=== PATIENT | female | born 1955 | race Caucasian/White ===

== ENCOUNTER → 2017-08-03 | Outpatient (CLI) | payer OTHER ==
--- NOTE | 2017-08-03 12:49 | MM ---
Reason for exam: screening (asymptomatic). Last mammogram was performed 1 year and 10 months ago. History: Patient is postmenopausal. Family history of breast cancer in mother at age 86 and breast cancer in maternal grandmother at age 70. Benign cyst aspiration of the left breast. Physical Findings: A clinical breast exam by your physician is recommended on an annual basis and results should be correlated with mammographic findings. MG Screening Mammo w CAD Bilateral CC and MLO view(s) were taken. Prior study comparison: September 20, 2015, bilateral MG screening mammo w CAD. March 17, 2014, bilateral MG screening mammo w CAD. The breast tissue is heterogeneously dense. This may lower the sensitivity of mammography. Finding: There are typically benign round calcifications in the right breast. There is no discrete abnormality. ASSESSMENT: Benign, BI-RAD 2 RECOMMENDATION: Routine screening mammogram of both breasts in 1 year.
== END | disposition home or self-care (01) ==
LOC: RADMAMWWP 08:36
PROVIDERS: ATTEND Family Medicine
DX: Z12.31 Encounter for screening mammogram for malignant neoplasm of breast (principal)

== ENCOUNTER → 2018-04-08 | Outpatient (CLI) | payer OTHER ==
--- NOTE | 2018-04-08 22:56 | US ---
EXAMINATION TYPE: US thyroid st tissue head/neck DATE OF EXAM: 04/08/2018 COMPARISON: NONE CLINICAL HISTORY: 63-year-old female R59.0 supraclavicular lymphadenopathy. Intermittent right lower neck area of swelling x 1 year TECHNIQUE: Multiple sonographic images of the right supraclavicular region. Images of the contralater al side were obtained for comparison purposes. FINDINGS: Hand Paster notes: Right neck area of concern: appears wnl Left neck for comparison: appears wnl No solid or cystic mass or suspicious lymphadenopathy is identified within the superficial tissues of the bilateral supraclavicular regions. IMPRESSION: No discrete sonographic abnormality identified in either supraclavicular region. The area can be reim aged if there is recurrence of a palpable finding or swelling.
== END | disposition home or self-care (01) ==
LOC: RADUSWWP 16:18
PROVIDERS: ATTEND Family Medicine
DX: R59.0 Localized enlarged lymph nodes (principal)
CPT/HCPCS: 76536

== ENCOUNTER → 2018-08-17 | Outpatient (CLI) | payer OTHER ==
--- NOTE | 2018-08-17 11:54 | MM ---
Reason for exam: screening (asymptomatic). Last mammogram was performed 1 year ago. History: Patient is postmenopausal. Family history of breast cancer in mother at age 86 and breast cancer in maternal grandmother at age 70. Benign cyst aspiration of the left breast. Physical Findings: A clinical breast exam by your physician is recommended on an annual basis and results should be correlated with mammographic findings. MG 3D Screening Mammo W/Cad Bilateral CC and MLO view(s) were taken. Prior study comparison: August 03, 2017, bilateral MG screening mammo w CAD. September 20, 2015, bilateral MG screening mammo w CAD. The breast tissue is heterogeneously dense. This may lower the sensitivity of mammography. There are benign appearing round vascular calcifications bilaterally. There is no discrete abnormality. ASSESSMENT: Benign, BI-RAD 2 RECOMMENDATION: Routine screening mammogram of both breasts in 1 year.
== END ==
LOC: RADMAMWWP 08:10
PROVIDERS: ATTEND Family Medicine
DX: Z12.31 Encounter for screening mammogram for malignant neoplasm of breast (principal)
CPT/HCPCS: 77063; 77067

== ENCOUNTER → 2019-09-01 | Outpatient (CLI) | payer BC ==
--- NOTE | 2019-09-05 09:41 | MM ---
Reason for exam: screening (asymptomatic). Last mammogram was performed 1 year ago. History: Patient is postmenopausal. Family history of breast cancer in mother at age 86 and breast cancer in maternal grandmother at age 70. Benign cyst aspiration of the left breast. Took hormonal contraceptives for 5 years. Physical Findings: A clinical breast exam by your physician is recommended on an annual basis and results should be correlated with mammographic findings. MG 3D Screening Mammo W/Cad Bilateral CC and MLO view(s) were taken. Prior study comparison: August 17, 2018, bilateral MG 3d screening mammo w/cad. August 03, 2017, bilateral MG screening mammo w CAD. The breast tissue is heterogeneously dense. This may lower the sensitivity of mammography. Stable benign calcifications. There is no discrete abnormality. No significant changes when compared with prior studies. ASSESSMENT: Benign, BI-RAD 2 RECOMMENDATION: Routine screening mammogram of both breasts in 1 year.
== END | disposition home or self-care (01) ==
LOC: RADMAMWWP 08:37
PROVIDERS: ATTEND Family Medicine
DX: Z12.31 Encounter for screening mammogram for malignant neoplasm of breast (principal)
CPT/HCPCS: 77063; 77067

== ENCOUNTER → 2020-09-12 | Outpatient (CLI) | payer MEDICARE, BC ==
--- NOTE | 2020-09-14 08:55 | MM ---
Reason for exam: screening (asymptomatic). Last mammogram was performed 1 year ago. History: Patient is postmenopausal. Family history of breast cancer in mother at age 86 and breast cancer in maternal grandmother at age 70. Benign cyst aspiration of the left breast. Took hormonal contraceptives for 5 years. Physical Findings: A clinical breast exam by your physician is recommended on an annual basis and results should be correlated with mammographic findings. MG 3D Screening Mammo W/Cad Bilateral CC and MLO view(s) were taken. Prior study comparison: September 01, 2019, bilateral MG 3d screening mammo w/cad. August 17, 2018, bilateral MG 3d screening mammo w/cad. The breast tissue is heterogeneously dense. This may lower the sensitivity of mammography. There are benign appearing round calcifications bilaterally. There is no discrete abnormality. ASSESSMENT: Benign, BI-RAD 2 RECOMMENDATION: Routine screening mammogram of both breasts in 1 year.
== END | disposition home or self-care (01) ==
LOC: RADMAMWWP 07:54
PROVIDERS: ATTEND Internal Medicine
DX: Z12.31 Encounter for screening mammogram for malignant neoplasm of breast (principal)
CPT/HCPCS: 77063; 77067

== ENCOUNTER → 2021-08-13 | Outpatient (CLI) | payer BC, MEDICARE | END | disposition home or self-care (01) | LOC: LABPAT 14:27 | PROVIDERS: ATTEND Orthopaedic Surgery | DX: Z01.812 Encounter for preprocedural laboratory examination (principal); M17.11 Unilateral primary osteoarthritis, right knee; Z22.322 Carrier or suspected carrier of Methicillin resistant Staphylococcus aureus | CPT/HCPCS: 87070 ==

== ENCOUNTER 2021-09-17 11:12 | Day surgery (SDC) | payer BC, MEDICARE ==
[2021-09-12 17:22] VITALS: BMI 26.6
--- NOTE | 2021-09-16 10:03 | HP ---
HISTORY AND PHYSICAL CHIEF COMPLAINT: Right knee pain. HISTORY OF PRESENT ILLNESS: The patient is a 66-year-old female who presents with progressive right knee pain for the past several years. She notes significant pain with weightbearing activities and at night. She notes diffuse pain along with swelling and stiffness. Intermittently she has giving way. She has had previous injections in addition to taking medications, without much relief. PAST MEDICAL HISTORY: Significant for depression, hypertension and arthritis. PAST SURGICAL HISTORY: Significant for left knee arthroscopy and gallbladder removal. FAMILY HISTORY: Significant for heart disease and cancer. SOCIAL HISTORY: Significant for social alcohol use. REVIEW OF SYSTEMS: Sixteen-point review of systems otherwise reviewed and is noncontributory. CURRENT MEDICATIONS: Aspirin, Paxil, ibuprofen, atenolol, lisinopril, loratadine. ALLERGIES: SHE DENIES DRUG ALLERGIES. PHYSICAL EXAMINATION: On examination, the patient is approximately 5 feet 4 inches, 155 pounds of mesomorphic habitus. HEENT exam is nonfocal. Neck is supple. She has painless passive motion of the right hip. Straight-leg raise is negative. Active motion of the right knee: Minus 12 to 115 degrees of flexion. She has a moderate effusion. She is tender about the medial joint line. Collaterals are stable, Mohit is negative, Paige's is equivocal. She has genu varum alignment. Her distal neurovascular exam appears intact in the right lower extremity. Weightbearing notch, lateral and Merchant views of the right knee obtained in the office show severe medial compartment narrowing with [id number] changes and subchondral sclerosis. IMPRESSION: Right knee severe medial compartment osteoarthrosis. RECOMMENDATIONS: I talked to the patient at length regarding her condition along with treatment options. At this point she remains quite symptomatic and limited secondary to pain related to her osteoarthrosis despite conservative measures. After thorough discussion, she opted to proceed with surgery. We will plan to proceed with right total knee arthroplasty. We will institute DVT prophylaxis postoperatively. MMODL / IJN: [id number] /
[~2021-09-17 11:12] MED LIST: ACETAMINOPHEN TAB 500 MG TAB PO PRN; MELOXICAM 7.5 MG TAB PO PRN; TRANEXAMIC ACID 1,000 MG in SODIUM CHLORIDE 0.9% 100 ML IVPB PRN
[2021-09-17] MEDS ORDERED: ONDANSETRON 4 MG/2 ML VIAL ONE (12:10)
[2021-09-17] MEDS ORDERED: LACTATED RINGERS 1,000 ML IV ONE ×2 (12:37→14:26)
[2021-09-17] MEDS ORDERED: DEXAMETHASONE SOD PHOSPHATE 4 MG/ML 1 ML VIAL IVP ONE (12:37)
[2021-09-17] MEDS ORDERED: fentaNYL (PF) 50 MCG/ML 5 ML AMP IVP ONE (12:45)
[2021-09-17] MEDS ORDERED: MIDAZOLAM 2 MG/2 ML VIAL IVP ONE (12:45)
[2021-09-17] MEDS ORDERED: .fentaNYL (PF) 50 MCG/ML 2 ML AMP ONE (13:16)
[2021-09-17] MEDS ORDERED: KETAMINE 10 MG/ML 20 ML VIAL ONE (13:16)
[2021-09-17] MEDS ORDERED: SODIUM CHLORIDE 0.9% (PF) 10 ML VIAL ONE (13:16)
[2021-09-17] MEDS ORDERED: PROPOFOL 10 MG/ML 20 ML VIAL IV ONE (13:16)
[2021-09-17] MEDS ORDERED: ROPIVACAINE 5 MG/ML 30 ML VIAL ONE (13:16)
[2021-09-17] MEDS ORDERED: MIDAZOLAM 2 MG/2 ML VIAL ONE (13:16)
[2021-09-17] MEDS ORDERED: TRANEXAMIC ACID 1,000 MG/10 ML VIAL ONE (13:16)
[2021-09-17] MEDS ORDERED: ePHEDrine 50 MG/ML 1 ML AMP ONE (13:16)
[2021-09-17] MEDS ORDERED: SODIUM CHLORIDE 0.9% 100 ML BAG ONE (13:16)
[2021-09-17] MEDS ORDERED: ceFAZolin 1,000 MG in SODIUM CHLORIDE 0.9% 1,000 ML IRRIGATION ONE (13:45)
--- NOTE | 2021-09-17 15:04 | P.ANPRN ---
Procedure Note - Anesthesia - Nerve Block Performed Right Adductor Canal Infusion Time Out Performed: Yes (1243) Date of Procedure: 09/17/21 Procedure Start Time: 12:45 Procedure Stop Time: 12:51 Location of Patient: PreOp Indication: Acute Post-Operative Pain, Requested by Surgeon Specifically requested for management of pain by DrJayme: Cedric Alexis Sedation Type: Sedate with meaningful contact maintained Preparation: Sterile Prep, Sterile Dressing Position: Supine Catheter Depth at Skin (cm): 7 Catheter: Indwelling Needle Gauge: 18 Ultrasound used to visualize needle placement: Yes Ultrasound used to observe medication spread: Yes Injectate: 0.5% Ropivacaine (see comment for volume) (15cc + 5cc nacl pf) Blood Aspirated: No Pain Paresthesia on Injection Noted: No Resistance on Injection: Normal Image Stored and Saved: Yes Events: Uneventful and Well Tolerated Right iPack Single Time Out Performed: Yes (124) Date of Procedure: 09/17/21 Procedure Start Time: 12:52 Procedure Stop Time: 12:56 Location of Patient: PreOp Indication: Acute Post-Operative Pain, Requested by Surgeon Specifically requested for management of pain by Dr.: Cedric Alexis Sedation Type: Sedate with meaningful contact maintained Preparation: Sterile Prep Position: Supine Catheter: None Needle Types: Pajunk Needle Gauge: 21 Ultrasound used to visualize needle placement: Yes Ultrasound used to observe medication spread: Yes Injectate: 0.5% Ropivacaine (see comment for volume) (15cc + 5cc nacl pf) Blood Aspirated: No Pain Paresthesia on Injection Noted: No Resistance on Injection: Normal Image Stored and Saved: Yes Events: Uneventful and Well Tolerated
[2021-09-17] MEDS ORDERED: HYDROcodone/APAP 5-325MG 1 EACH TAB PO PRN (15:19)
[2021-09-17] MEDS ORDERED: NALOXONE 0.4 MG/ML 1 ML VIAL IV PRN (15:19)
[2021-09-17] MEDS ORDERED: HYDROmorphone 0.5 MG/0.5 ML SYRINGE IVP PRN (15:19)
--- NOTE | 2021-09-17 15:29 | P.OP ---
Date of Procedure: 09/17/21 Preoperative Diagnosis: Right knee severe tricompartmental osteoarthrosis Postoperative Diagnosis: Same Procedure(s) Performed: Right total knee arthroplastyposterior stabilizedcemented Implants: Depuy Attune size 4 narrow cemented femoral component, size 3 cemented tibial component, 11 mm articular surface, 32 mm cemented patellar component. This is a posterior stabilized implant. Anesthesia: regional, spinal Surgeon: Cedric Alexis Typecasting Machine Operator #1: Armani Lyles Estimated Blood Loss (ml): 50 Pathology: other (Bone fragments) Condition: stable Disposition: PACU Indications for Procedure: The patient is a 60 [place] female presents with progressive right knee pain secondary to osteoarthrosis despite conservative measures. A discussion of the risks and benefits of operative intervention versus continued conservative sarah sures was made with patient. She opted to proceed with surgery. Operative risks to include infection, neurovascular injury, development of blood clots, possible component loosening/failure need for subsequent procedures was discussed. Informed consent was obtained. Operative Findings: As below Description of Procedure: The patient was brought to the operating room, and after induction of spinal anesthesia the right lower extremity was prepped and draped in a normal fashion. The tourniquet was inflated to 270 mm marker. A longitudinal incision extending 3 finger breaths above the superior pole of patella extending to the medial aspect the tibial tubercle was then made. The skin and subcutaneous tissues were divided sharply. Electrocautery was used for hemostasis. A medial parapatellar arthrotomy was performed. The medial soft tissues to include the superficial and deep portions of the medial collateral ligament were elevated subperiosteally. The patella was everted. A portion of the retropatellar fat pad was excised sharply. The anterior cruciate ligament was sacrificed. Blunt retractors were placed. A starting hole was made in the distal femur 1 cm anterior to the posterior cruciate ligament origin. An intramedullary femoral guide was then inserted planning on 5 valgus distal cut with 9 mm distal resection. The cutting block was pinned in place. The distal cut was then made. The posterior referencing sizing guide was utilized. I felt size 4 narrow was most appropriate. 3 of external rotation was built into the system and verified off the trans-epicondylar axis and the posterior condyles. The cutting block was pinned in place. The anterior, posterior, and chamfer cuts then made. Bone fragments were removed. The intercondylar guide was placed and the notch cut was made with a sagittal saw. The bone block was removed in one fragment. The trial component was then placed. There is good anterior to posterior and medial to lateral fit. The distal peg holes were drilled. The trial component was removed. Attention was then paid towards preparing the proximal femur. An extra medullary guide was utilized in line with the tibial shaft and second metatarsal distally. I planned on 2 mm resection from the medial compartment. The cutting block was pinned in place. The proximal tibial cut was then made. The bone was removed in one fragment. The remnants of the medial and lateral menisci were excised at the capsular junction with electrocautery. The tibia sized most appropriately at size 3. The trial femoral and tibial components were placed along with a 11 mm articular surface. I was able to obtain full flexion and extension with internal and external rotation. After several flexion and extension cycles, the tibial rotation was marked with electrocautery line with the medial one third of the tibial tubercle. Attention was then paid towards preparing the patella. A patella reamer was utilized taking stem to 14 mm of bone stock. A good flush cut was made. The patella sized most appropriately 32 mm. The peg holes were drilled. The trial components placed. I had good patellofemoral tracking with no hands technique. The trial components were then removed. The tibia was prepared in the appropriate rotation with appropriate drill and keel punch. The posterior osteophytes were removed with a curved osteotome. The flexion and extension gaps were checked and felt to be symmetric at 11 mm. A trial components were then removed. The bony surfaces were prepared with pulsatile lavage and dried. The tibial component was then cemented place was fully seated. Excess cement was removed. The femoral component cemented place and was fully seated. Excess cement was removed. The trial 11 mm articular surface was placed and the knee was put in full extension. The patella component was cemented place. After the cement had sufficiently hardened, the knee was again taken through a range of motion. Again I was able to obtain full flexion and extension with varus and valgus stress. The trial 11 mm articular surface was removed and the final one inserted. This was fully seated. Care was taken to avoid any soft tissue interposition. Pulsatile lavage was again utilized. The medial parapatellar arthrotomy was closed with #2 Ethibond suture. The tourniquet was deflated with approximately 60 minutes total tourniquet time. Final hemostasis was obtained with the cautery. There was minimal bleeding therefore a deep drain was not placed. The subcutaneous tissues were reapproximated with interrupted 2-0 Vicryl sutures. The skin was reapproximated with 3-0 subcuticular strata fix suture. Skin tape and adhesive was applied. A sterile dressing was applied. The patient was awoken from sedation and transferred to recovery room in good condition. Blood loss was estimated at 50 mL. No complications were incurred. Sponge and needle counts were correct at the end of the case. Armani CIFUENTES assisted during the major components of this case to include exposure, bone resection, implantation, and closure.
--- NOTE | 2021-09-17 15:56 | XR ---
EXAMINATION TYPE: XR knee limited RT DATE OF EXAM: 09/17/2021 CLINICAL HISTORY: Right knee pain and arthritis status post total knee replacement. TECHNIQUE: Portable AP and crosstable lateral views of the right knee are obtained immediately posto peratively. COMPARISON: Outside right knee x-ray August 08, 2021 FINDINGS: [place] osseous structures are demineralized. Metallic hardware from total right knee arthr oplasty is now seen and appears satisfactory in alignment and position. There is evidence of recent surgery with diffuse subcutaneous gas and soft tissue swelling noted. IMPRESSION: METALLIC HARDWARE FROM TOTAL RIGHT KNEE ARTHROPLASTY IS SATISFACTORY IN ALIGNMENT.
[2021-09-17] MEDS ORDERED: ROPIVACAINE 0.2%-NS ON-Q PUMP 1,090 MG, EMPTY PAIN BALL 1 EACH MISCELLANE PRN (16:24)
[2021-09-17] MEDS: HYDROcodone/APAP 7.5-325MG 1 EACH TAB PO PRN (17:04)
--- NOTE | 2021-09-17 17:56 | P.CONS ---
History of Present Illness - Reason for Consult Consult date: 09/17/21 hypertension Requesting physician: Cedric Alexis - Chief Complaint knee pain - History of Present Illness Patient is a 66-year-old female with hypertension, dyslipidemia, and osteoarthritis of her right total knee arthroplasty. Patient tolerated the procedure well without any immediate postoperative complications. Patient seen and examined at bedside. We'll controlled currently. Denies any postoperative, nausea, vomiting, lightheadedness, dizziness, chest pain, shortness of breath. Had been having osteoarthritis for quite some years and then increased her working and had worsening pain. Denies any recent cough, cold, fever, flu. Blood pressure is typically well controlled. Pertinent positives and negatives as discussed in HPI, a complete review of systems was performed and all other systems are negative. General: non toxic, no distress, appears at stated age Derm: warm, dry Head: atraumatic, normocephalic, symmetric Eyes: EOMI, no lid lag, anicteric sclera, pupils equal round reactive to light ENT: Nose and ears atraumatic, no thrush, no pharyngeal erythema Neck: No thyromegaly, no cervical lymphadenopathy, trachea midline, supple Mouth: no lip lesion, mucus membranes moist Cardiovascular: S1S2 reg, no murmur, positive posterior tibial pulse bilateral, no edema Lungs: Decreased bs bilateral, no ronchi, no rales, no wheeze, no accessory muscle use Abdominal: soft, nontender to palpation, no guarding, no appreciable organomega ly, normal bowel sounds Ext: no gross muscle atrophy, muscle strength equal bilateral upper extremi ties, no contractures, right knee with dressing in place and onQ ball Neuro: CN II-XI grossly intact, light touch intact all 4 extremities, finger to nose within normal limits, Psych: Alert, oriented, appropriate affect 66-year-old female status post right total knee arthroplasty Hypertension, controlled - lisinopril, atenolol/chlorthalidone - follow BP Hypokalemia -Recheck in a.m. Dyslipidemia - statin, lopid Thank you for allowing us to participate in the care of this pleasant patient. Do not hesitate to contact us with questions. Someone can be reached from the [facility] hospitalist group all hours of the day at [phone] or via [employer]. Past Medical History Past Medical History: Hyperlipidemia, Hypertension, Osteoarthritis (OA) History of Any Multi-Drug Resistant Organisms: None Reported Past Surgical History: Cholecystectomy, Orthopedic Surgery Additional Past Surgical History / Comment(s): left knee arthroscopy Past Anesthesia/Blood Transfusion Reactions: Previous Problems w/ Anesthesia, Postoperative Nausea & Vomiting (PONV) Additional Past Anesthesia/Blood Transfusion Reaction / Comm: had several teeth removed as a child in a hospital setting, had some kind of reaction to an esthesia-possibly a seizure?-took med. after for a period of time, never had any other problems-none as an adult Past Psychological History: Anxiety, Depression Smoking Status: Never smoker Past Alcohol Use History: Daily Additional Past Alcohol Use History / Comment(s): 1-2 glasses wine Past Drug Use History: None Reported - Past Family History Mother Family Medical History: Cancer Additional Family Medical History / Comment(s): breast Medications and Allergies Home Medications Medication Instructions Recorded Confirmed Type Acetaminophen [Tylenol Arthritis] 650 mg PO Q6H PRN 09/12/21 09/12/21 History Alendronate Sodium [Fosamax] 70 mg PO Q7D 09/12/21 09/12/21 History Atenolol/Chlorthalidone 1 each PO DAILY 09/12/21 09/12/21 History [Atenolol/Chlorthalidone 50-25] Atorvastatin [Lipitor] 40 mg PO DAILY 09/12/21 09/12/21 History Fenofibrate [Lofibra] 54 mg PO DAILY 09/12/21 09/12/21 History Ibuprofen [Motrin Ib] 200 mg PO Q6H PRN 09/12/21 09/12/21 History Lisinopril [Zestril] 10 mg PO DAILY 09/12/21 09/12/21 History Loratadine [Claritin] 10 mg PO DAILY 09/12/21 09/12/21 History Multivitamins, Thera [Multivitamin 1 tab PO DAILY 09/12/21 09/12/21 History (formulary)] PARoxetine [Paxil] 10 mg PO DAILY 09/12/21 09/12/21 History RX: Aspirin 81 mg PO DAILY 09/12/21 09/12/21 History RX: Vitamin E 400 unit PO DAILY 09/12/21 09/12/21 History Ubidecarenone [Co Q-10] 100 mg PO DAILY 09/12/21 09/12/21 History Allergies Allergy/AdvReac Type Severity Reaction Status Date / Time No Known Allergies Allergy Verified 09/17/21 11:51 Physical Exam Osteopathic Statement: *. No significant issues noted on an osteopathic struc tural exam other than those noted in the History and Physical/Consult. Vitals: Vital Signs Temp Pulse Pulse Resp BP BP Pulse Ox 09/17/21 16:30 67 16 148/67 97 09/17/21 16:15 68 16 132/73 96 09/17/21 16:00 63 18 130/61 100 09/17/21 15:45 63 18 120/60 100 09/17/21 15:30 68 18 111/60 100 09/17/21 15:22 97.8 F 70 18 109/58 97 09/17/21 13:00 64 16 141/70 98 09/17/21 12:00 97.9 F 72 16 140/67 98 Intake and Output 09/17/21 09/17/21 09/17/21 06:59 14:59 22:59 Intake Total 1451 400 Output Total 50 Balance 1401 400 Intake: IV 1451 400 Output: Estimated Blood Loss 50 Other: Weight 68.1 kg Results CBC & Chem 7: 09/17/21 12:28 Labs: Abnormal Lab Results - Last 24 Hours (Table) 09/17/21 Range/Units 12:28 Potassium 3.3 L (3.5-5.1) mmol/L
[2021-09-17] MEDS ORDERED: SENNOSIDES-DOCUSATE SODIUM 1 EACH TAB PO SCH (21:00)
[2021-09-18] MEDS: HYDROcodone/APAP 7.5-325MG 1 EACH TAB PO PRN ×2 (05:38→11:30)
[2021-09-18] MEDS ORDERED: ENOXAPARIN 30 MG/0.3 ML SYRINGE SQ SCH (06:00)
[2021-09-18 06:22] LABS: African American GFR (CKD) >90 (>60 ml/min/1.73 sqM); Anion Gap 7 mmol/L; Blood Urea Nitrogen 19 mg/dL (7-17); Calcium 9.7 mg/dL (8.4-10.2); Carbon Dioxide 29 mmol/L (22-30); Chloride 100 mmol/L (98-107); Glucose 117 mg/dL (74-99); Non-African American GFR(CKD) 88 (>60 ml/min/1.73 sqM); Potassium 3.7 mmol/L (3.5-5.1); Sodium 136 mmol/L (137-145)
--- NOTE | 2021-09-18 07:13 | P.PN ---
Progress Note - Text Progress Note Date: 09/18/21 (740) Anesthesiology Postop day 1 status post total knee arthroplasty with adductor canal catheter. Patient doing well. VAS 0 out of 10. Gross strength intact in lower extremity. Afebrile. Denies alterations in sensorium. Catheter site intact. Heart regular rate Lungs nonlabored Abdomen nondistended Assessment: Postop day 1 status post total knee arthroplasty with adductor canal catheter Plan: All questions answered. Maintain catheter 2 more days with patient removal at home. Instructions were given at discharge.
[2021-09-18] MEDS ORDERED: lisinopriL 10 MG TAB PO SCH (09:00)
[2021-09-18] MEDS ORDERED: ATORVASTATIN 40 MG TAB PO SCH (09:00)
[2021-09-18] MEDS ORDERED: PARoxetine 10 MG TAB PO SCH (09:00)
[2021-09-18] MEDS ORDERED: FENOFIBRATE 54 MG TAB PO SCH (09:00)
[2021-09-18] MEDS ORDERED: atenoloL 50 MG TAB PO SCH (09:00)
[2021-09-18] MEDS ORDERED: CHLORTHALIDONE 25 MG TAB PO SCH (09:00)
[2021-09-18] MEDS ORDERED: LORATADINE 10 MG TAB PO SCH (09:00)
[2021-09-18 09:44] LABS: Basophils # (A) 0.03 X 10*3/uL (0.00-0.10); Basophils % (A) 0.3 %; Eosinophils # (A) 0.01 X 10*3/uL (0.04-0.35); Eosinophils % (A) 0.1 %; HCT 37.5 % (37.2-46.3); HGB 12.3 g/dL (12.0-15.0); Lymphocytes % (A) 12.9 %; MCH 31.9 pg (27.0-32.0); MCHC 32.8 g/dL (32.0-37.0); MCV 97.4 fL (80.0-97.0); Mean Platelet Volume 10.3 fL (9.5-12.2); Monocytes # (A) 0.99 X 10*3/uL (0.20-1.00); Monocytes % (A) 9.8 %; Neutrophils # (A) 7.73 X 10*3/uL (1.80-7.70); Neutrophils % (A) 76.6 %; Platelet Count 326 X 10*3/uL (140-440); RBC 3.85 X 10*6/uL (4.10-5.20); RDW 12.5 % (11.5-14.5); WBC 10.09 X 10*3/uL (4.50-10.00)
--- NOTE | 2021-09-18 10:24 | P.DS ---
Providers Date of admission: 09/17/2021 Expected date of discharge: 09/18/21 Attending physician: Cedric Alexis Consults: 09/17/21 15:22 Consult Physician Routine Consulting Provider: Ivonne Grossman Consult Reason/Comments: Medical Management s/p RTKA Do you want consulting provider notified?: Yes Primary care physician: Arpan Hinson Hospital Course: Date of admission: 09/17/2021 Date of discharge: 09/18/2021 Admission diagnosis: Right knee osteoarthritis Discharge diagnosis: Same Attending physician: Dr. Alexis Surgical procedures: Right total knee arthroplasty Brief history: Patient is a 66-year-old female with a history of progressive primary right knee osteoarthritis. At this point patient has failed conservative treatment measures and has opted to proceed with a elective right total knee arthroplasty. Hospital course: Details of patient's surgery can be found in operative report. Patient tolerated the procedure well and was subsequently transported to orthopedic floor. Patient's orthopeidc and medical care was provided daily. Patient had daily laboratory tests performed for evaluation of overall blood counts. Patient had daily physical therapy to include strengthening range of motion as well as education with walker ambulation. Patient was treated with Lovenox for their postoperative DVT prophylaxis during their inpatient stay. Patient was noted to have a relatively uneventful postoperative course. Patient reported satisfactory pain control with oral pain medications by postoperative day 1. Patient showed satisfactory progress with physical therapy. Patient moved steadily through the program and had no difficulty meeting the goals by postoperative day 1. Given patient's otherwise satisfactory course and having met physical therapy goals, plan is to discharge patient home on postoperative day 1. Discharge condition/disposition: Patient will be discharged home in stable condition. Discharge medications: Instructions are given on resumption of patient's normal daily medications per primary care recommendation, in addition patient will be prescribed [place] 7.5 mg/325 mg; Colace; aspirin 81 mg twice a day 30 days patient has aspirin at home to take. Discharge instructions: 1. Wound care and infection precautions, keep incision dry and covered while showering, no lotions, creams, moisturizers. No soaking, tubs, pools, hottubs. Do not scrub over the incision. 2. Weight-bear as tolerated with walker / cane until follow-up. 3. Ice and elevate when necessary. Do not exceed 20 minutes per hour with ice pack. 4. Utilize compression sleeve until seen at first follow up appointment. 5. Visiting nursing care. 6. Home physical therapy including home CPM. 7. Pain meds and anticoagulants per prescription. 8. Pain medication has potential to cause constipation. Increase oral fluid and fiber intake. Contact primary care provider if you have not had a bowel movement within 48 hours after discharge 9. No anti-inflammatory medication until discussed at first post operative visit, this including Motrin, Aleve, Mobic, Diclofenac. 10. Follow up in office at 2 weeks postop with Oli Pratt PA-C / Armani Lyles PA-C 11. Follow up with your primary care doctor 7-10 days after discharge. 12. Contact [facility] with any questions, . Keep incision clean, dry, intact. While showering, cover incision with Saran wrap/plastic bag. Keep mesh tape on until follow-up appointment in 2 weeks. Medications: Lunenburg 7.5 mg/325 mg; Colace; aspirin 81 mg twice a day 30 days Assessment: Right knee osteoarthritis Procedures: Right total knee arthroplasty Patient Condition at Discharge: Good Plan - Discharge Summary Discharge Rx Participant: Yes New Discharge Prescriptions: New HYDROcodone/APAP 7.5-325MG [Lunenburg 7.5] 1 each PO Q6HR PRN #32 tab PRN Reason: Pain Docusate [Colace] 100 mg PO DAILY #30 capsule Continue Atorvastatin [Lipitor] 40 mg PO DAILY Atenolol/Chlorthalidone [Atenolol/Chlorthalidone 50-25] 1 each PO DAILY Alendronate Sodium [Fosamax] 70 mg PO Q7D Multivitamins, Thera [Multivitamin (formulary)] 1 tab PO DAILY Aspirin 81 mg PO DAILY PARoxetine [Paxil] 10 mg PO DAILY Loratadine [Claritin] 10 mg PO DAILY Fenofibrate [Lofibra] 54 mg PO DAILY Lisinopril [Zestril] 10 mg PO DAILY Vitamin E 400 unit PO DAILY Ubidecarenone [Co Q-10] 100 mg PO DAILY Acetaminophen [Tylenol Arthritis] 650 mg PO Q6H PRN PRN Reason: Pain No Action Ibuprofen [Motrin Ib] 200 mg PO Q6H PRN PRN Reason: Pain Discharge Medication List Acetaminophen [Tylenol Arthritis] 650 mg PO Q6H PRN 09/12/21 [History] Alendronate Sodium [Fosamax] 70 mg PO Q7D 09/12/21 [History] Aspirin 81 mg PO BID 09/12/21 [History] Atenolol/Chlorthalidone [Atenolol/Chlorthalidone 50-25] 1 each PO DAILY 09/12/21 [History] Atorvastatin [Lipitor] 40 mg PO DAILY 09/12/21 [History] Fenofibrate [Lofibra] 54 mg PO DAILY 09/12/21 [History] Ibuprofen [Motrin Ib] 200 mg PO Q6H PRN 09/12/21 [History] Lisinopril [Zestril] 10 mg PO DAILY 09/12/21 [History] Loratadine [Claritin] 10 mg PO DAILY 09/12/21 [History] Multivitamins, Thera [Multivitamin (formulary)] 1 tab PO DAILY 09/12/21 [History] PARoxetine [Paxil] 10 mg PO DAILY 09/12/21 [History] Ubidecarenone [Co Q-10] 100 mg PO DAILY 09/12/21 [History] Vitamin E 400 unit PO DAILY 09/12/21 [History] Docusate [Colace] 100 mg PO DAILY #30 capsule 09/18/21 [Rx] HYDROcodone/APAP 7.5-325MG [Lunenburg 7.5] 1 each PO Q6HR PRN #32 tab 09/18/21 [Rx] Follow up Appointment(s)/Referral(s): [facility],Equipment [NON-STAFF] - (*Please call [facility] once home to arrange delivery of Continuous Passive Motion (CPM) machine. ) Arpan Hinson MD [Primary Care Provider] - 1 Week [facility], [NON-STAFF] - ([facility] will call you once home to schedule your in home nursing and physical therapy visits. ) Armani Lyles PAC [PHYSICIAN TEA ROOM MANAGER] - 2 Weeks Patient Instructions/Handouts: Knee Replacement (GEN) Activity/Diet/Wound Care/Special Instructions: Discharge instructions: 1. Wound care and infection precautions, keep incision dry and covered while showering, no lotions, creams, moisturizers. No soaking, tubs, pools, hottubs. Do not scrub over the incision. 2. Weight-bear as tolerated with walker / cane until follow-up. 3. Ice and elevate when necessary. Do not exceed 20 minutes per hour with ice pack. 4. Utilize compression sleeve until seen at first follow up appointment. 5. Visiting nursing care. 6. Home physical therapy including home CPM. 7. Pain meds and anticoagulants per prescription. 8. Pain medication has potential to cause constipation. Increase oral fluid and fiber intake. Contact primary care provider if you have not had a bowel movement within 48 hours after discharge 9. No anti-inflammatory medication until discussed at first post operative visit, this including Motrin, Aleve, Mobic, Diclofenac. 10. Follow up in office at 2 weeks postop with Oli Pratt PA-C / Armani Lyles PA-C 11. Follow up with your primary care doctor 7-10 days after discharge. 12. Contact [facility] with any questions, . Keep incision clean, dry, intact. While showering, cover incision with Saran wrap/plastic bag. Keep mesh tape on until follow-up appointment in 2 weeks. Medications: Lunenburg 7.5 mg/325 mg; Colace; aspirin 81 mg twice a day 30 days Discharge Disposition: HOME WITH HOME HEALTH SERVICES
--- NOTE | 2021-09-18 10:29 | P.PN ---
Subjective Progress Note Date: 09/18/21 Principal diagnosis: Right knee osteoarthritis Patient was seen this morning at bedside wrist slightly sitting up in chair icing her knee. Patient says she did get up with physical therapy this morning and walk around remnant following up-and-down process. Patient says she does have walker at home. Patient says she is ready to home. Patient says she has had something to eat since surgery. She says she has been passing gas, however, she says she has not had bowel movement yet. Patient denies chest pain, fever, shortness of breath, nausea, vomiting, change in vision, loss of bladder control. Objective - Vital Signs Vital signs: Vital Signs Temp 98.0 F 09/18/21 07:26 Pulse 64 09/18/21 07:26 Resp 20 09/18/21 07:26 BP 154/70 09/18/21 07:26 Pulse Ox 96 09/18/21 07:26 Intake & Output 09/17/21 09/18/21 09/18/21 18:59 06:59 18:59 Intake Total 2811 Output Total 50 Balance 2761 Weight 68.1 kg Intake: IV 1851 Oral 960 Output: Estimated Blood Loss 50 Other: # Voids 0 4 - Exam Right knee: Incision is clean, dry, and intact. The mesh tape is in good condition. There is minimal soft tissue swelling and ecchymosis surrounding the medial and lateral aspects of the incision. Calf is soft, no tenderness with palpation. Plantar flexion, dorsiflexion, EHL, FHL are intact. Sensory exam to light touch throughout the extremity is intact, dorsal pedis pulses 2+. - Labs CBC & Chem 7: 09/18/21 05:39 09/18/21 05:39 Labs: Abnormal Lab Results - Last 24 Hours (Table) 09/17/21 09/18/21 09/18/21 Range/Units 12:28 05:39 05:39 WBC 10.09 H (4.50-10.00) X 10*3/uL RBC 3.85 L (4.10-5.20) X 10*6/uL MCV 97.4 H (80.0-97.0) fL Neutrophils # 7.73 H (1.80-7.70) X 10*3/uL Eosinophils # 0.01 L (0.04-0.35) X 10*3/uL Sodium 136 L (137-145) mmol/L Potassium 3.3 L (3.5-5.1) mmol/L BUN 19 H (7-17) mg/dL Glucose 117 H (74-99) mg/dL Assessment and Plan Assessment: Right knee osteoarthritis - Postop day #1 status post right total knee arthroplasty Plan: 1. Right knee osteoarthritis - right total knee arthroplasty performed yesterday, 09/17/2021. Patient stable to assessment. Plan discharge home today with health services. 2. Appreciate medical management 3. Pain management - [place] 4. DVT prophylaxis - Lovenox in hospital; aspirin 81 mg twice a day 30 days once at home 5. GI prophylaxis - Colace 6. Encourage incentive spirometer use 7. PT/OT - weightbearing as tolerated with walker 8. Discharge planning - plan discharge home today with health services. Time with Patient: Less than 30
--- NOTE | 2021-09-18 13:05 | P.PN ---
Subjective Progress Note Date: 09/18/21 Principal diagnosis: knee pain Patient is a 66-year-old female with hypertension, dyslipidemia, and osteoarthritis of her right total knee arthroplasty. Patient tolerated the procedure well without any immediate postoperative complications. Patient seen and examined at bedside. General: non toxic, no distress, appears at stated age Derm: warm, dry Head: atraumatic, normocephalic, symmetric Mouth: no lip lesion, mucus membranes moist Cardiovascular: S1S2 reg, no murmur, positive posterior tibial pulse bilateral, no edema Lungs: Decreased bs bilateral, no ronchi, no rales, no wheeze, no accessory muscle use Abdominal: soft, nontender to palpation, no guarding, no appreciable organomegaly, normal bowel sounds Ext: no gross muscle atrophy, no contractures, right knee with dressing in place and on Q ball Neuro: CN II-XI grossly intact, light touch intact all 4 extremities, finger to nose within normal limits, Psych: Alert, oriented, appropriate affect 66-year-old female status post right total knee arthroplasty Hypertension, controlled - lisinopril, atenolol/chlorthalidone - follow BP Hypokalemia, resolved Dyslipidemia - statin, lopid medically optimized for discharge, med rec addressed. Thank you for allowing us to participate in the care of this pleasant patient. Do not hesitate to contact us with questions. Someone can be reached from the [facility] hospitalist group all hours of the day at [phone] or via perfect serve. Objective - Vital Signs Vital signs: Vital Signs Temp 98.0 F 09/18/21 07:26 Pulse 64 09/18/21 07:26 Resp 20 09/18/21 08:54 BP 154/70 09/18/21 07:26 Pulse Ox 96 09/18/21 07:26 Intake & Output 09/17/21 09/18/21 09/18/21 18:59 06:59 18:59 Intake Total 2811 Output Total 50 Balance 2761 Weight 68.1 kg Intake: IV 1851 Oral 960 Output: Estimated Blood Loss 50 Other: # Voids 0 4 - Labs CBC & Chem 7: 09/18/21 05:39 09/18/21 05:39 Labs: Abnormal Lab Results - Last 24 Hours (Table) 09/18/21 09/18/21 Range/Units 05:39 05:39 WBC 10.09 H (4.50-10.00) X 10*3/uL RBC 3.85 L (4.10-5.20) X 10*6/uL MCV 97.4 H (80.0-97.0) fL Neutrophils # 7.73 H (1.80-7.70) X 10*3/uL Eosinophils # 0.01 L (0.04-0.35) X 10*3/uL Sodium 136 L (137-145) mmol/L BUN 19 H (7-17) mg/dL Glucose 117 H (74-99) mg/dL
[2021-09-18 14:45] VITALS: BP 143/75; PULSE 74; RESP 16; TEMP 98.6
== END 2021-09-18 15:53 | disposition home health service (06) ==
LOC: OR 11:12 → 4SSUR 15:15 → OR 09-18 15:53
PROVIDERS: ATTEND Orthopaedic Surgery
DX: M17.11 Unilateral primary osteoarthritis, right knee (principal); M25.761 Osteophyte, right knee; I10 Essential (primary) hypertension; F32.A Depression, unspecified; E78.5 Hyperlipidemia, unspecified; Z20.822 Contact with and (suspected) exposure to COVID-19; Z98.890 Other specified postprocedural states; F41.9 Anxiety disorder, unspecified; Z80.9 Family history of malignant neoplasm, unspecified; Z82.49 Family history of ischemic heart disease and other diseases of the circulatory system; Z79.1 Long term (current) use of non-steroidal anti-inflammatories (NSAID); Z79.82 Long term (current) use of aspirin; Z79.899 Other long term (current) drug therapy
CPT/HCPCS: 97161; 64999; 64448; 76942; 80048; 84132; 85025; 88300; 87635; 73560; 27447; C1713 ×2; C1776; J2250; J1100; J0690 ×3; J2405; J3010 ×2; J1650; J2795 ×2; J2704

== ENCOUNTER → 2021-12-24 | Outpatient (CLI) | payer BC, MEDICARE ==
--- NOTE | 2021-12-25 12:38 | MM ---
Reason for exam: screening (asymptomatic). Last mammogram was performed 1 year and 3 months ago. History: Patient is postmenopausal. Family history of breast cancer in mother at age 86 and breast cancer in maternal grandmother at age 70. Benign cyst aspiration of the left breast. Took hormonal contraceptives for 5 years. Physical Findings: A clinical breast exam by your physician is recommended on an annual basis and results should be correlated with mammographic findings. MG 3D Screening Mammo W/Cad Bilateral CC and MLO view(s) were taken. Prior study comparison: September 12, 2020, bilateral MG 3d screening mammo w/cad. September 01, 2019, bilateral MG 3d screening mammo w/cad. The breast tissue is heterogeneously dense. This may lower the sensitivity of mammography. No significant changes when compared with prior studies. ASSESSMENT: Benign, BI-RAD 2 RECOMMENDATION: Routine screening mammogram of both breasts in 1 year.
== END | disposition home or self-care (01) ==
LOC: RADMAMWWP 08:41
PROVIDERS: ATTEND Family Medicine
DX: Z12.31 Encounter for screening mammogram for malignant neoplasm of breast (principal); Z78.0 Asymptomatic menopausal state; Z80.3 Family history of malignant neoplasm of breast
CPT/HCPCS: 77063; 77067

== ENCOUNTER → 2024-05-10 | Outpatient (CLI) | payer MEDICARE, BC ==
--- NOTE | 2024-05-11 13:58 | MM ---
Reason for Exam: Screening (asymptomatic). Last screening mammogram was performed 12 month(s) ago. Patient History: Menarche at age 12. First Full-Term at age 28. Postmenopausal. Patient used Hormonal Contraceptives for 5 years. Benign Cyst Aspiration on the left side. Maternal grandmother had breast cancer, age 70. Mother had breast cancer, age 86. Risk Values: Lavonne 5 year model risk: 3.4%. NCI Lifetime model risk: 10.2%. Prior Study Comparison: 09/12/2020 Bilateral Screening Mammogram, [facility]. 12/24/2021 Bilateral Screening Mammogram, [facility]. 04/30/2023 Bilateral MG 3D screening mammo w/cad, [facility]. Tissue Density: The breasts are heterogeneously dense, which may obscure small masses. Findings: Analyzed By CAD. There is no suspicious group of microcalcifications or new suspicious mass in either breast. Overall Assessment: Negative, BI-RAD 1 Management: Screening Mammogram of both breasts in 1 year. . Patient should continue monthly self-breast exams. A clinical breast exam by your physician is recommended on an annual basis. This exam should not preclude additional follow-up of suspicious palpable abnormalities. Note on Lavonne scores and lifetime risk: 1. A Lavonne score greater than 3% is considered moderate risk. If this is the case, consider specialist referral to assess eligibility for a risk reducing agent. 2. If overall lifetime risk for the development of breast cancer is 20% or higher, the patient may qualify for future screening with alternating mammogram and breast MRI. Electronically signed and approved by: Alexis Paredes M.D. Radiologis
== END | disposition home or self-care (01) ==
LOC: RADMAMWWP 14:12
PROVIDERS: ATTEND Family Medicine
DX: Z12.31 Encounter for screening mammogram for malignant neoplasm of breast (principal); R92.333 Mammographic heterogeneous density, bilateral breasts; Z78.0 Asymptomatic menopausal state; Z80.3 Family history of malignant neoplasm of breast
CPT/HCPCS: 77063; 77067

== ENCOUNTER → 2024-06-21 | Outpatient (CLI) | payer MEDICARE, BC | END | disposition home or self-care (01) | LOC: LABPAT 10:23 | PROVIDERS: ATTEND Orthopaedic Surgery | DX: Z01.818 Encounter for other preprocedural examination (principal); M17.12 Unilateral primary osteoarthritis, left knee; Z22.322 Carrier or suspected carrier of Methicillin resistant Staphylococcus aureus | CPT/HCPCS: 87070 ==

== ENCOUNTER 2024-07-12 05:42 | Day surgery (SDC) | payer MEDICARE, BC ==
--- NOTE | 2024-07-11 08:32 | P.HPOR ---
History of Present Illness H&P Date: 07/11/24 Chief Complaint: Left knee pain The patient is a 69-year-old female who presents with progressive left knee pain for the past several years worsening over the past several months. She notes aching and soreness along with stiffness and giving way. She tried medications in addition to previous injections with only temporary partial relief. She notes daily pain that limits her normal function and activities. Review of Systems Per HPI Past Medical History Past Medical History: GERD/Reflux, Hyperlipidemia, Hypertension, Osteoarthritis (OA) Additional Past Medical History / Comment(s): hx. fatty liver disease History of Any Multi-Drug Resistant Organisms: None Reported Past Surgical History: Breast Surgery, Cholecystectomy, Joint Replacement, Orthopedic Surgery Additional Past Surgical History / Comment(s): left knee arthroscopy, right knee replaced 2020, cyst removed from breast, D & C Past Anesthesia/Blood Transfusion Reactions: Previous Problems w/ Anesthesia, Postoperative Nausea & Vomiting (PONV) Additional Past Anesthesia/Blood Transfusion Reaction / Comment(s): had several teeth removed as a child in a hospital setting, had some kind of reaction to anesthesia-possibly a seizure?-took med. after for a period of time, never had any other problems-none as an adult Smoking Status: Never smoker - Past Family History Mother Family Medical History: Cancer Additional Family Medical History / Comment(s): breast Medications and Allergies Home Medications Medication Instructions Recorded Confirmed Type Alendronate Sodium [Fosamax] 70 mg PO Q7D 09/12/21 07/05/24 History Atorvastatin [Lipitor] 40 mg PO DAILY 09/12/21 07/05/24 History Fenofibrate [Lofibra] 54 mg PO DAILY 09/12/21 07/05/24 History Ibuprofen [Motrin Ib] 200 mg PO Q6H PRN 09/12/21 07/05/24 History Loratadine [Claritin] 10 mg PO DAILY 09/12/21 07/05/24 History Multivitamins, Thera [Multivitamin 1 tab PO DAILY 09/12/21 07/05/24 History (formulary)] PARoxetine [Paxil] 20 mg PO DAILY 09/12/21 07/05/24 History Ubidecarenone [Co Q-10] 100 mg PO DAILY 09/12/21 07/05/24 History Vitamin E 400 unit PO DAILY 09/12/21 07/05/24 History Acetaminophen [Tylenol Extra 500 mg PO Q6H PRN 07/05/24 07/05/24 History Strength] Prebiotic 1 tab PO DAILY 07/05/24 07/05/24 History Vitamin D3/Vitamin K2 (Mk4) 1 each PO DAILY 07/05/24 07/05/24 History [Vitamin K2 Plus D3 Tablet] amLODIPine BESYLATE/BENAZEPRIL 1 each PO DAILY 07/05/24 07/05/24 History [amLODIPine BESYLATE/BENAZEPRIL 5-40 mg] hydroCHLOROthiazide [Hydrodiuril] 12.5 mg PO DAILY 07/05/24 07/05/24 History Allergies Allergy/AdvReac Type Severity Reaction Status Date / Time No Known Allergies Allergy Verified 07/05/24 15:59 Physical Examination - Knee left Appearance: effusion Effusion grade: grade 3 Varus alignment in stance: 5 degrees Tenderness with palpation: anterior, medial Pain: throughout ROM Gait: limping ROM: extension: -15 degrees ROM: flexion: 90 degrees Crepitus with motion: Yes Strength: extension: 5/5 Strength: flexion: 5/5 Meniscal tests: medial meniscal tests: positive, medial joint line pain: posi tive Results The patient is a well-developed well-nourished female approximately 5 foot 4, 162 pounds of mesomorphic habitus. HEENT exam is nonfocal, neck is supple. She has painless passive motion of her left hip. She is tender about the medial joint line of the left knee. Collaterals are stable, Mohit is negative, Paige's is equivocal. Her distal neurovascular exam appears intact to the left lower extremity. - Diagnostic results Knee x-ray: image reviewed (X-rays of the left knee obtaining the office show severe medial compartment osteoarthrosis with [id number] changes along with subchondral sclerosis. Genu varum alignment is noted.) Assessment and Plan Assessment: Left knee severe medial compartment osteoarthrosis Plan: I talked to the patient at length regarding her condition along with treatment options. At this point she is quite symptomatic having pain and mechanical symptoms related to her left knee osteoarthrosis despite conservative measures. After a thorough discussion she opts to proceed with surgery. We'll plan to proceed with left total knee arthroplasty. Risks and benefits were discussed at length in layman's terms. We will institute DVT prophylaxis postoperatively.
[~2024-07-12 05:42] MED LIST changes: -ACETAMINOPHEN TAB 500 MG TAB PO PRN; -MELOXICAM 7.5 MG TAB PO PRN; +TRANEXAMIC 1,000 MG/100ML-NACL 1,000 MG in SALINE 1 100ML.BAG IVPB PRN; -TRANEXAMIC ACID 1,000 MG in SODIUM CHLORIDE 0.9% 100 ML IVPB PRN
[2024-07-12] MEDS ORDERED: LIDOCAINE 1% (10MG/ML) FOR IV START INTRADERMA PRN (05:57)
[2024-07-12] MEDS: LACTATED RINGERS 1,000 ML IV SCH (06:32)
[2024-07-12] MEDS: ONDANSETRON 4 MG/2 ML VIAL IVP ONE (06:33)
[2024-07-12] MEDS: MELOXICAM 7.5 MG TAB PO PRN (06:33)
[2024-07-12] MEDS: DEXAMETHASONE SOD PHOSPHATE 4 MG/ML 1 ML VIAL IV ONE (06:33)
[2024-07-12] MEDS: ACETAMINOPHEN TAB 500 MG TAB PO PRN (06:33)
[2024-07-12] MEDS: MIDAZOLAM 2 MG/2 ML VIAL IV PRN (06:58)
[2024-07-12] MEDS ORDERED: fentaNYL (PF) 50 MCG/ML 2 ML AMP IVP PRN (07:00)
[2024-07-12] MEDS: IV FLUID CONTINUATION 1,000 ML IV ONE (07:15)
[2024-07-12] MEDS ORDERED: PROPOFOL 10 MG/ML 20 ML VIAL IV ONE (07:25)
[2024-07-12] MEDS ORDERED: MIDAZOLAM 2 MG/2 ML VIAL ONE (07:25)
[2024-07-12] MEDS ORDERED: KETAMINE HCL IN 0.9 % NACL 50 MG/5 ML SYRINGE ONE (07:25)
[2024-07-12] MEDS ORDERED: ROPIVACAINE 5 MG/ML 30 ML VIAL ONE (07:25)
[2024-07-12] MEDS ORDERED: fentaNYL (PF) 50 MCG/ML 2 ML AMP ONE (07:25)
[2024-07-12] MEDS ORDERED: PHENYLEPHRINE 10 MG/ML VIAL ONE (07:25)
[2024-07-12] MEDS ORDERED: TRANEXAMIC 1,000 MG/100ML-NACL PREMIX BAG ONE (07:25)
[2024-07-12] MEDS ORDERED: DEXAMETHASONE SOD PHOSPHATE 4 MG/ML 1 ML VIAL ONE (07:25)
[2024-07-12] MEDS: ceFAZolin 1,000 MG in SODIUM CHLORIDE 0.9% 1,000 ML IRRIGATION ONE (08:00)
[2024-07-12] MEDS: LACTATED RINGERS 1,000 ML IV ONE (08:44)
[2024-07-12] MEDS ORDERED: MAGNESIUM HYDROXIDE 2,400 MG/30 ML CUP PO PRN (09:06)
[2024-07-12] MEDS ORDERED: HYDROmorphone 0.5 MG/0.5 ML SYRINGE IVP PRN ×2 (09:06)
[2024-07-12] MEDS ORDERED: NALOXONE 0.4 MG/ML 1 ML VIAL IV PRN (09:06)
[2024-07-12] MEDS ORDERED: HYDROcodone/APAP 5-325MG 1 EACH TAB PO PRN (09:06)
--- NOTE | 2024-07-12 09:25 | P.OP ---
Date of Procedure: 07/12/24 Preoperative Diagnosis: Left knee severe tricompartmental osteoarthrosis Postoperative Diagnosis: Same Procedure(s) Performed: Left total knee arthroplastycementedposterior stabilized Implants: DePuy attune size 4 narrow cemented femoral component, size 3 cemented tibial component, 10 mm articular surface, 32 mm cemented patellar component. This is a posterior stabilized implant. Anesthesia: regional, spinal Surgeon: Cedric Alexis Audit Director #1: Armani Lyles Estimated Blood Loss (ml): 50 Pathology: none sent Condition: stable Disposition: PACU Indications for Procedure: The patient is a 69-year-old female who presents with progressive left knee pain secondary to osteoarthrosis despite conservative measures. A discussion of the risks and benefits of operative intervention versus continued conservative measures with the patient. She opted to proceed with surgery. Operative risks include infection, neurovascular injury, development of blood clots, fracture, possible component loosening/failure and possible need for subsequent procedures was discussed. Informed consent was obtained. Operative Findings: As below Description of Procedure: The patient was brought to the operating room, and after induction of spinal anesthesia the left lower extremity was prepped and draped in a normal fashion. The tourniquet was inflated to 270 mm marker. A longitudinal incision extending 3 finger breaths above the superior pole of patella extending to the medial aspect the tibial tubercle was then made. The skin and subcutaneous tissues were divided sharply. Electrocautery was used for hemostasis. A medial parapatellar arthrotomy was performed. The medial soft tissues to include the superficial and deep portions of the medial collateral ligament were elevated subperiosteally. The patella was everted. A portion of the retropatellar fat pad was excised sharply. The anterior cruciate ligament was sacrificed. Blunt retractors were placed. A starting hole was made in the distal femur 1 cm anterior to the posterior cruciate ligament origin. An intramedullary femoral guide was then inserted planning on 5 valgus distal cut with 9 mm distal resection. The cutting block was pinned in place. The distal cut was then made. The posterior referencing sizing guide was utilized. I felt size 4 narrow was most appropriate. 3 of external rotation was built into the system and verified off the trans-epicondylar axis and the posterior condyles. The cutting block was pinned in place. The anterior, posterior, and chamfer cuts then made. Bone fragments were removed. The intercondylar guide was placed and the notch cut was made with a sagittal saw. The bone block was removed in one fragment. The trial component was then placed. There is good anterior to posterior and medial to lateral fit. The distal peg holes were drilled. The trial component was removed. Attention was then paid towards preparing the proximal tibia. An extra medullary guide was utilized in line with the tibial shaft and second metatarsal distally. I planned on 2 mm resection from the medial compartment. The cutting block was pinned in place. The proximal tibial cut was then made. The bone was removed in one fragment. The remnants of the medial and lateral menisci were excised at the capsular junction with electrocautery. The tibia sized most appropriately at size 3. The trial femoral and tibial components were placed along with a 10 mm articular surface. I was able to obtain full flexion and extension with internal and external rotation. After several flexion and extension cycles, the tibial rotation was marked with electrocautery line with the medial one third of the tibial tubercle. Attention was then paid towards preparing the patella. A patella reamer was utilized taking stem to 14 mm of bone stock. A good flush cut was made. The patella sized most appropriately 32 mm. The peg holes were drilled. The trial components placed. I had good patellofemoral tracking with no hands technique. The trial components were then removed. The tibia was prepared in the appropriate rotation with appropriate drill and keel punch. The posterior osteophytes were removed with a curved osteotome. The flexion and extension gaps were checked and felt to be symmetric at 10 mm. A trial components were then removed. The bony surfaces were prepared with pulsatile lavage and dried. The tibial component was then cemented place was fully seated. Excess cement was removed. The femoral component cemented place and was fully seated. Excess cement was removed. The trial 10 mm articular surface was placed and the knee was put in full extension. The patella component was cemented place. After the cement had sufficiently hardened, the knee was again taken through a range of motion. Again I was able to obtain full flexion and extension with varus and valgus stress. The trial 10 mm articular surface was removed and the final one inserted. This was fully seated. Care was taken to avoid any soft tissue interposition. Pulsatile lavage was again utilized. The medial parapatellar arthrotomy was closed with #2 Ethibond suture. The tourniquet was deflated with approximately 60 minutes total tourniquet time. Final hemostasis was obtained with the cautery. There was minimal bleeding therefore a deep drain was not placed. The subcutaneous tissues were reapproximated with interrupted 2-0 Vicryl sutures. The skin was reapproximated with 3-0 subcuticular strata fix suture. Skin tape and adhesive was applied. A sterile dressing was applied. The patient was awoken from sedation and transferred to recovery room in good condition. Blood loss was estimated at 50 mL. No complications were incurred. Sponge and needle counts were correct at the end of the case. Armani CIFUENTES assisted during the major components of this case to include exposure, bone resection, implantation, and closure.
[2024-07-12] MEDS: ROPIVACAINE 1,100 MG, SODIUM CHLORIDE 0.9% 500 ML 330 ML, EMPTY PAIN BALL 1 EACH MISCELLANE PRN (09:38)
--- NOTE | 2024-07-12 09:52 | XR ---
EXAMINATION TYPE: XR knee limited LT DATE OF EXAM: 07/12/2024 CLINICAL HISTORY: Postoperative evaluation Two views of the left knee are submitted. Identified are changes of total knee arthroplasty with fem oral and tibial components appearing well seated. Postsurgical soft tissue changes are noted. Align ment is anatomic. [facility], , 07/12/2024 9:49 AM
[2024-07-12] MEDS: HYDROmorphone 1 MG/ML 1 ML SYRINGE IVP STA (10:43)
--- NOTE | 2024-07-12 12:10 | P.ANPRN ---
Procedure Note - Anesthesia - Nerve Block Performed Left Adductor Canal Infusion Time Out Performed: Yes Date of Procedure: 07/12/24 Procedure Start Time: 06:57 Procedure Stop Time: 07:04 Location of Patient: PreOp Indication: Acute Post-Operative Pain, Requested by Surgeon Sedation Type: Sedate with meaningful contact maintained Preparation: Sterile Prep, Sterile Dressing Position: Supine Catheter: Indwelling Needle Types: Pajunk Needle Gauge: 21 Ultrasound used to visualize needle placement: Yes Ultrasound used to observe medication spread: Yes Blood Aspirated: No Pain Paresthesia on Injection Noted: No Resistance on Injection: Normal Image Stored and Saved: Yes Events: Uneventful and Well Tolerated (Ropivacaine 0.5% 20 cc plus dexamethasone 4 mg)
--- NOTE | 2024-07-12 12:11 | P.ANPRN ---
Procedure Note - Anesthesia - Nerve Block Performed Left iPack Single Time Out Performed: Yes Date of Procedure: 07/12/24 Procedure Start Time: 07:05 Procedure Stop Time: 07:06 Location of Patient: PreOp Indication: Acute Post-Operative Pain, Requested by Surgeon Sedation Type: Sedate with meaningful contact maintained Preparation: Sterile Prep Position: Supine Needle Types: Pajunk Needle Gauge: 21 Ultrasound used to visualize needle placement: Yes Ultrasound used to observe medication spread: Yes Blood Aspirated: No Pain Paresthesia on Injection Noted: No Resistance on Injection: Normal Image Stored and Saved: Yes Events: Uneventful and Well Tolerated (Ropivacaine 0.5% 25 cc plus dexamethasone 4 mg)
[2024-07-12] MEDS: HYDROmorphone 0.5 MG/0.5 ML SYRINGE IVP PRN (13:40)
--- NOTE | 2024-07-12 15:03 | P.CONS ---
History of Present Illness - Reason for Consult Consult date: 07/12/24 Requesting physician: Cedric Alexis - Chief Complaint medical management - History of Present Illness Patient is a 69-year-old female with past medical history of hypertension, hyperlipidemia, anxiety and depression who is admitted to the orthopedic service after a left total knee arthroplasty. Medicine consulted for medical management. Patient denying any acute complaints. ROS: 10 ROS reviewed and are negative except as noted in HPI Physical exam General: [Alert and oriented, well nourished, no acute distress]. Eye: [PERRL, EOMI, normal conjunctiva]. HENT: [Normocephalic, clear tympanic membranes, normal hearing, moist oral mucosa, no scleral icterus, no sinus tenderness]. Neck: [Supple, non-tender, no carotid bruits, no JVD, no lymphadenopathy]. Lungs: [Clear to auscultation and percussion, non-labored respiration]. Heart: [Normal rate, regular rhythm, no murmur, gallop or edema]. Abdomen: [Soft, non-tender, non-distended, normal bowel sounds, no masses]. Musculoskeletal: [Bandage on left knee intact and dry, restricted range of motion of the left lower extremity]. Skin: [Skin is warm, dry and pink, no rashes or lesions]. Neurologic: [Awake, alert, and oriented X3, CN II-XII intact]. Psychiatric: [Cooperative, appropriate mood and affect]. Assessment and plan Hyperlipidemia Continue with atorvastatin 40 mg p.o. daily Hypertension Will hold BP meds for now since he patient likely to have low blood pressure after surgery. Monitor blood pressure and we will plan on restarting BP meds tomorrow morning if blood pressure elevated Anxiety and depression Continue with Paxil 20 mg daily Left total knee arthroplasty Continue with Xarelto for DVT prophylaxis PT OT consult As per your orthopedic surgery management DVT prophylaxis: Xarelto Past Medical History Past Medical History: GERD/Reflux, Hyperlipidemia, Hypertension, Osteoarthritis (OA) Additional Past Medical History / Comment(s): hx. fatty liver disease History of Any Multi-Drug Resistant Organisms: None Reported Past Surgical History: Breast Surgery, Cholecystectomy, Joint Replacement, O rthopedic Surgery Additional Past Surgical History / Comment(s): left knee arthroscopy, right knee replaced 2020, cyst removed from breast, D & C Past Anesthesia/Blood Transfusion Reactions: Previous Problems w/ Anesthesia, Postoperative Nausea & Vomiting (PONV) Additional Past Anesthesia/Blood Transfusion Reaction / Comm: had several teeth removed as a child in a hospital setting, had some kind of reaction to anesthesia-possibly a seizure?-took med. after for a period of time, never had any other problems-none as an adult Smoking Status: Never smoker - Past Family History Mother Family Medical History: Cancer Additional Family Medical History / Comment(s): breast Medications and Allergies Home Medications Medication Instructions Recorded Confirmed Type Alendronate Sodium [Fosamax] 70 mg PO Q7D 09/12/21 07/12/24 History Atorvastatin [Lipitor] 40 mg PO DAILY 09/12/21 07/12/24 History Fenofibrate [Lofibra] 54 mg PO DAILY 09/12/21 07/12/24 History Ibuprofen [Motrin Ib] 200 mg PO Q6H PRN 09/12/21 07/12/24 History Loratadine [Claritin] 10 mg PO DAILY 09/12/21 07/12/24 History Multivitamins, Thera [Multivitamin 1 tab PO DAILY 09/12/21 07/12/24 History (formulary)] PARoxetine [Paxil] 20 mg PO DAILY 09/12/21 07/12/24 History Ubidecarenone [Co Q-10] 100 mg PO DAILY 09/12/21 07/12/24 History Vitamin E 400 unit PO DAILY 09/12/21 07/12/24 History Acetaminophen [Tylenol Extra 500 mg PO Q6H PRN 07/05/24 07/12/24 History Strength] Prebiotic 1 tab PO DAILY 07/05/24 07/12/24 History Vitamin D3/Vitamin K2 (Mk4) 1 each PO DAILY 07/05/24 07/12/24 History [Vitamin K2 Plus D3 Tablet] amLODIPine BESYLATE/BENAZEPRIL 1 each PO DAILY 07/05/24 07/12/24 History [amLODIPine BESYLATE/BENAZEPRIL 5-40 mg] hydroCHLOROthiazide [Hydrodiuril] 12.5 mg PO DAILY 07/05/24 07/12/24 History Allergies Allergy/AdvReac Type Severity Reaction Status Date / Time No Known Allergies Allergy Verified 07/12/24 06:14 Physical Exam Osteopathic Statement: *. No significant issues noted on an osteopathic structural exam other than those noted in the History and Physical/Consult. Vitals: Vital Signs Temp Pulse Pulse Resp BP BP Pulse Ox 07/12/24 14:20 97.9 F 76 17 121/67 96 07/12/24 13:15 84 16 114/56 94 L 07/12/24 12:15 81 16 114/62 93 L 07/12/24 11:45 96 16 118/66 93 L 07/12/24 11:20 77 16 118/66 94 L 07/12/24 11:05 72 16 126/63 96 07/12/24 10:50 72 16 141/73 93 L 07/12/24 10:35 75 16 137/68 94 L 07/12/24 10:20 70 16 137/71 93 L 07/12/24 10:06 61 16 136/71 94 L 07/12/24 09:50 67 16 132/67 96 07/12/24 09:35 65 16 126/65 95 07/12/24 09:20 97.7 F 73 14 131/74 97 07/12/24 06:19 98.0 F 79 16 170/78 98 Intake and Output 07/12/24 07/12/24 07/12/24 06:59 14:59 22:59 Intake Total 1751 Output Total 50 Balance 1701 Intake: IV 1751 Output: Estimated Blood Loss 50 Other: Weight 72.8 kg
[2024-07-12] MEDS: HYDROcodone/APAP 7.5-325MG 1 EACH TAB PO PRN (16:30)
[2024-07-12] MEDS: hydrOXYzine pamoate 25 MG CAP PO PRN (19:44)
[2024-07-12] MEDS: SENNOSIDES-DOCUSATE SODIUM 1 EACH TAB PO SCH (19:44)
--- NOTE | 2024-07-13 06:55 | P.PN ---
Progress Note - Text Progress Note Date: 07/13/24 patient was seen and evaluated at bedside. Status post postoperative day 1 for Left total knee arthroplasty patient had adductor canal catheter for postop pain control. Patient rated pain at rest 3-4 out of 10 in severity. Patient describes pain is aching, throbbing type on the sides of the knee and back of the knee. Patient started walking with support. With activity patient pain levels are 6 out of 10 in severity. With the help of oral pain medications pain levels are tolerable. Patient denied any weakness/ numbness in lower extremities. patient denied any fever, pain over the catheter site. Physical exam: Patient vital signs stable Patient is alert awake oriented 3 responding to all questions appropriately Examination of the catheter site showed dressing intact, no leaking fluid around the catheter, no redness, no tenderness over the catheter insertion area. plan: status post postoperative day 1 for left total knee arthroplasty with adductor canal catheter for pain control. Patient was discussed to continue the medication at the rate of 8 mL per hour until the pump is completely empty and instructed the patient how to discontinue the catheter
[2024-07-13 08:02] VITALS: BP 146/80; PULSE 69; RESP 17; TEMP 97.8
[2024-07-13 08:47] LABS: Basophils # (A) 0.02 X 10*3/uL (0.00-0.10); Basophils % (A) 0.2 %; Eosinophils # (A) 0 X 10*3/uL (0.04-0.35); Eosinophils % (A) 0 %; HCT 33.9 % (37.2-46.3); HGB 11.2 g/dL (12.0-15.0); Lymphocytes # (A) 1.03 X 10*3/uL (0.90-5.00); Lymphocytes % (A) 10.6 %; MCH 32.2 pg (27.0-32.0); MCV 97.4 FL (80.0-97.0); Mean Platelet Volume 10.3 FL (9.5-12.2); Monocytes # (A) 1.01 X 10*3/uL (0.20-1.00); Monocytes % (A) 10.4 %; NRBC Per 100 WBC 0 X 10*3/uL (0.00-0.01); Neutrophils % (A) 78.4 %; Platelet Count 296 X 10*3/uL (140-440); RBC 3.48 X 10*6/uL (4.10-5.20); RDW 12.5 % (11.5-14.5)
[2024-07-13] MEDS: FENOFIBRATE 54 MG TAB PO SCH (09:33)
[2024-07-13] MEDS: RIVAROXABAN 10 MG TAB PO SCH (09:34)
[2024-07-13] MEDS: MULTIVITAMINS, THERA 1 EACH TAB PO SCH (09:34)
[2024-07-13] MEDS: PARoxetine 20 MG TAB PO SCH (09:34)
[2024-07-13] MEDS: LORATADINE 10 MG TAB PO SCH (09:35)
[2024-07-13] MEDS: ATORVASTATIN 40 MG TAB PO SCH (09:36)
--- NOTE | 2024-07-13 09:39 | P.PN ---
Subjective Progress Note Date: 07/13/24 Principal diagnosis: Status post left total knee arthroplasty Patient examined today at bedside, she is resting in her hospital chair. She has done very well thus far with the rehabilitation. She did well with physical therapy, she did do the stairs. Pain is controlled with current medications. She is urinating with no issues. Patient denies headaches, lightheadedness, ch est pain, shortness of breath Objective - Vital Signs Vital signs: Vital Signs Temp 97.8 F 07/13/24 07:10 Pulse 69 07/13/24 07:10 Resp 17 07/13/24 07:10 BP 146/80 07/13/24 07:10 Pulse Ox 95 07/13/24 07:10 FiO2 Intake & Output 07/12/24 07/13/24 07/13/24 18:59 06:59 18:59 Intake Total 1751 Output Total 50 Balance 1701 Weight 72.8 kg Intake: IV 1751 Output: Estimated Blood Loss 50 Other: Voiding Method Toilet Toilet # Voids 1 3 - Exam Left lower extremity: Incision is clean, dry, and intact. The exofin fusion tape is in good condition. There is minimal soft tissue swelling and ecchymosis surrounding the medial and lateral aspects of the incision. Calf is soft, no tenderness with palpation. Plantar flexion, dorsiflexion, EHL, FHL are intact. Sensory exam to light touch throughout the extremity is intact, dorsal pedis pulses 2+. - Labs CBC & Chem 7: 07/13/24 03:34 Labs: Abnormal Lab Results - Last 24 Hours (Table) 07/13/24 Range/Units 03:34 RBC 3.48 L (4.10-5.20) X 10*6/uL Hgb 11.2 L (12.0-15.0) g/dL Hct 33.9 L (37.2-46.3) % MCV 97.4 H (80.0-97.0) FL MCH 32.2 H (27.0-32.0) pg Monocytes # 1.01 H (0.20-1.00) X 10*3/uL Eosinophils # 0 L (0.04-0.35) X 10*3/uL Assessment and Plan Assessment: Postoperative day #1 status post left total knee arthroplasty Plan: Pain control, plan for discharge home on [place] 7.5 mg / 325 mg DVT prophylaxis, aspirin 81 mg twice a day for 30 days Home PT/OT Icing and elevating techniques discussed Wound care instructions discussed, this to include showering and bandage instructions Medical recommendations appreciated Discharge planning: Patient stable for discharge home today Time with Patient: Less than 30
--- NOTE | 2024-07-13 09:42 | P.DS ---
Providers Date of admission: 07/12/2024 Expected date of discharge: 07/13/24 Attending physician: Cedric Alexis Consults: 07/12/24 09:06 Consult Physician Routine Consulting Provider: Ricardo Jimenez Consult Reason/Comments: medical management s/p left total knee arthroplasty Do you want consulting provider notified?: Yes Primary care physician: Arpan Hinson Hospital Course: Date of admission: 07/12/2024 Date of discharge: 07/13/2024 Admission diagnosis: Status post left total knee arthroplasty Discharge diagnosis: Same Attending physician: Dr. Alexis Surgical procedures: Left total knee arthroplasty Brief history: Patient is a 69-year-old female with a history of progressive primary left knee osteoarthritis. At this point patient has failed conservative treatment measures and has opted to proceed with a elective left total knee arthroplasty. Hospital course: Details of patient's surgery can be found in operative report. Patient tolerated the procedure well and was subsequently transported to orthopedic floor. Patient's orthopeidc and medical care was provided daily. Patient had daily laboratory tests performed for evaluation of overall blood counts. Patient had daily physical therapy to include strengthening range of motion as well as education with walker ambulation. Patient was treated with Xarelto for their postoperative DVT prophylaxis during their inpatient stay. Patient was noted to have a relatively uneventful postoperative course. Patient reported satisfactory pain control with oral pain medications by postoperative day 0. Patient showed satisfactory progress with physical therapy. Patient moved steadily through the program and had no difficulty meeting the goals by postoperative day 1. Given patient's otherwise satisfactory course and having met physical therapy goals, plan is to discharge patient home on postoperative day 1. Discharge condition/disposition: Patient will be discharged home in stable condition. Discharge medications: Instructions are given on resumption of patient's normal daily medications per primary care recommendation, in addition patient will be prescribed [place] 7.5 mg / 325 mg, senna S, aspirin 81 mg. Discharge instructions: 1. Wound care and infection precautions, keep incision dry and covered while showering, no lotions, creams, moisturizers. No soaking, tubs, pools, hottubs. Do not scrub over the incision. 2. Weight-bear as tolerated with walker / cane until follow-up. 3. Ice and elevate when necessary. Do not exceed 20 minutes per hour with ice pack. 4. Utilize compression sleeve until seen at first follow up appointment. 5. Visiting nursing care. 6. Home physical therapy including home CPM. 7. Pain meds and anticoagulants per prescription. 8. Pain medication has potential to cause constipation. Increase oral fluid and fiber intake. Contact primary care provider if you have not had a bowel movement within 48 hours after discharge 9. No anti-inflammatory medication until discussed at first post operative visit, this including Motrin, Aleve, Mobic, Diclofenac. 10. Follow up in office at 2 weeks postop with Oli Pratt PA-C/Armani Dutton 11. Follow up with your primary care doctor 7-10 days after discharge. 12. Contact [facility] with any questions, . Procedures: Left total knee arthroplasty Patient Condition at Discharge: Good Plan - Discharge Summary Discharge Rx Participant: No New Discharge Prescriptions: New Aspirin [Adult Low Dose Aspirin EC] 81 mg PO BID #60 tab Sennosides/Docusate Sodium [Senna-S 8.6-50 mg Tablet] 2 each PO DAILY PRN #30 tablet PRN Reason: Constipation HYDROcodone/APAP 7.5-325MG [[place] 7.5] 1 each PO Q6HR PRN #28 tab PRN Reason: Pain No Action Ibuprofen [Motrin Ib] 200 mg PO Q6H PRN PRN Reason: Pain Atorvastatin [Lipitor] 40 mg PO DAILY Alendronate Sodium [Fosamax] 70 mg PO Q7D amLODIPine BESYLATE/BENAZEPRIL [amLODIPine BESYLATE/BENAZEPRIL 5-40 mg] 1 each PO DAILY Vitamin D3/Vitamin K2 (Mk4) [Vitamin K2 Plus D3 Tablet] 1 each PO DAILY Acetaminophen [Tylenol Extra Strength] 500 mg PO Q6H PRN PRN Reason: Pain Multivitamins, Thera [Multivitamin (formulary)] 1 tab PO DAILY PARoxetine [Paxil] 20 mg PO DAILY Loratadine [Claritin] 10 mg PO DAILY Fenofibrate [Lofibra] 54 mg PO DAILY Vitamin E 400 unit PO DAILY Ubidecarenone [Co Q-10] 100 mg PO DAILY hydroCHLOROthiazide [Hydrodiuril] 12.5 mg PO DAILY Prebiotic 1 tab PO DAILY Discharge Medication List Alendronate Sodium [Fosamax] 70 mg PO Q7D 09/12/21 [History] Atorvastatin [Lipitor] 40 mg PO DAILY 09/12/21 [History] Fenofibrate [Lofibra] 54 mg PO DAILY 09/12/21 [History] Ibuprofen [Motrin Ib] 200 mg PO Q6H PRN 09/12/21 [History] Loratadine [Claritin] 10 mg PO DAILY 09/12/21 [History] Multivitamins, Thera [Multivitamin (formulary)] 1 tab PO DAILY 09/12/21 [History] PARoxetine [Paxil] 20 mg PO DAILY 09/12/21 [History] Ubidecarenone [Co Q-10] 100 mg PO DAILY 09/12/21 [History] Vitamin E 400 unit PO DAILY 09/12/21 [History] Acetaminophen [Tylenol Extra Strength] 500 mg PO Q6H PRN 07/05/24 [History] Prebiotic 1 tab PO DAILY 07/05/24 [History] Vitamin D3/Vitamin K2 (Mk4) [Vitamin K2 Plus D3 Tablet] 1 each PO DAILY 07/05/24 [History] amLODIPine BESYLATE/BENAZEPRIL [amLODIPine BESYLATE/BENAZEPRIL 5-40 mg] 1 each PO DAILY 07/05/24 [History] hydroCHLOROthiazide [Hydrodiuril] 12.5 mg PO DAILY 07/05/24 [History] Aspirin [Adult Low Dose Aspirin EC] 81 mg PO BID #60 tab 07/13/24 [Rx] HYDROcodone/APAP 7.5-325MG [[place] 7.5] 1 each PO Q6HR PRN #28 tab 07/13/24 [Rx] Sennosides/Docusate Sodium [Senna-S 8.6-50 mg Tablet] 2 each PO DAILY PRN #30 tablet 07/13/24 [Rx] Follow up Appointment(s)/Referral(s): Armani Lyles, PAC [PHYSICIAN COAL BAGGER] - 2 Weeks [facility],Equipment [NON-STAFF] - As Needed (Call [facility] once home to arrange delivery of the Continuous Passive Motion (CPM) machine. ) Patient Instructions/Handouts: Knee Replacement (DC), Knee Replacement (GEN) Activity/Diet/Wound Care/Special Instructions: Orthopedic Discharge Instructions: 1. Wound care and infection precautions, keep incision dry and covered while showering, no lotions, creams, moisturizers. No soaking, pools, hot tubs. Do not scrub over incision. 2. Weight-bear as tolerated with walker / cane until follow-up. 3. Ice and elevate when necessary. Do not exceed 20 minutes per hour with ice pack. 4. Utilize compression sleeve until seen at first follow up appointment. 5. Pain meds and anticoagulants per prescription. 6. Pain medication has potential to cause constipation. Increase oral fluid and fiber intake. Contact primary care provider if you have not had a bowel movement within 48 hours after discharge. 7. No anti-inflammatory medication until discussed at first post operative visit, this including Motrin, Aleve, Mobic, Diclofenac. 8. Follow up in office at 2 weeks postop with Oli Pratt PA-C / Armani Lyles PA-C 9. Follow up with your primary care doctor 7-10 days after discharge. 10. Contact [facility] with any questions, . Keep incision clean, dry, intact. While showering, cover fusion tape with Saran wrap. Keep fusion tape on until follow-up appointment in office in 2 weeks Discharge Disposition: HOME WITH HOME HEALTH SERVICES
--- NOTE | 2024-07-13 11:30 | P.PN ---
Progress Note - Text Progress Note Date: 07/13/24 Patient seen this morning. I did also see her walk from the bathroom to her chair. Patient states that she is looking forward to going home. Patient stable for discharge from a medical standpoint. I have completed the discharge medication reconciliation.
== END 2024-07-13 13:53 | disposition home health service (06) ==
LOC: OR 05:42 → 4SSUR 09:16 → OR 07-13 13:53
PROVIDERS: ATTEND Orthopaedic Surgery
DX: M17.12 Unilateral primary osteoarthritis, left knee
CPT/HCPCS: 64448; 64999; 85025